=== PATIENT | female | born 1965 | race Caucasian/White ===

== ENCOUNTER 2020-04-18 11:51 | Outpatient (CLI) | payer OTHER, SELFPAY ==
--- NOTE | ~2020-04-18 | MM_ITS ---
EXAMINATION: MM screening ariana BI w keena HISTORY: Screening mammogram TECHNIQUE: Craniocaudal and mediolateral oblique 3-D tomosynthesis images were obtained and synthetic 2-D images were generated. CAD analysis was submitted and interpreted. COMPARISON: bilateral digital screening mammogram BREAST PARENCHYMAL COMPOSITION: The breasts are almost entirely fatty. FINDINGS: There is no evidence of suspicious mass, calcification, or architectural distortion to sugg est malignancy in either breast. There has been no suspicious interval change. IMPRESSION: 1. No mammographic evidence of malignancy. 2. Recommend routine screening mammography in one year. BI-RADS Category 1: Negative Reviewed, dictated and finalized at location A. NEL OPENER
== END 2020-04-18 11:52 | disposition home or self-care (01) ==
LOC: ANHIMG 11:54
PROVIDERS: PCP Physician Assistant; Visit Provider Nurse Practitioner Obstetrics & Gynecology
DX: Z12.31 Encounter for screening mammogram for malignant neoplasm of breast (principal)
CPT/HCPCS: 77063; 77067

== ENCOUNTER 2022-03-24 17:18 | Outpatient (CLI) | payer OTHER, SELFPAY ==
--- NOTE | ~2022-03-24 | CT_ITS ---
EXAMINATION: CT abdomen pelvis wo con DATE: 03/24/2022 17:45 INDICATION: Left-sided abdominal pain TECHNIQUE: Computed tomography (CT) of the abdomen and pelvis was performed without intravenous contr ast. The dose-length product (DLP) was 1586.43 mGy-cm. Automated exposure control and iterative recon struction technique were employed. COMPARISON: None FINDINGS: The lung bases are clear. The heart size is normal. The liver, spleen, pancreas, and adrena l glands are normal. Small stones are present in the nondistended gallbladder. Cysts of the left kidn ey measure up to 4.9 cm. The right kidney is unremarkable. No pathologically enlarged abdominal or pe lvic lymph nodes are identified. No free intraperitoneal gas or evidence of bowel obstruction. The ap pendix is normal. There is severe lumbar spondylosis at L5-S1. IMPRESSION: 1. No CT correlate for the patient's symptoms. Reviewed, dictated and finalized at location L. CULTURE TEACHER
== END 2022-03-24 17:19 | disposition home or self-care (01) ==
LOC: ANHIMG 17:21
PROVIDERS: PCP Physician Assistant; Visit Provider Physician Assistant
DX: R10.9 Unspecified abdominal pain (principal); G89.29 Other chronic pain
CPT/HCPCS: 74176

== ENCOUNTER 2022-05-04 15:48 | Outpatient (CLI) | payer OTHER, SELFPAY ==
--- NOTE | ~2022-05-04 | MM_ITS ---
EXAMINATION: MM screening ariana BI w keena HISTORY: Screening TECHNIQUE: Craniocaudal and mediolateral oblique 3-D tomosynthesis images were obtained and synthetic 2-D images were generated. CAD analysis was submitted and interpreted. COMPARISON: 04/18/2020 BREAST PARENCHYMAL COMPOSITION: There are scattered areas of fibroglandular density. FINDINGS: There is no evidence of suspicious mass, calcification, or architectural distortion to sugg est malignancy in either breast. There has been no suspicious interval change. IMPRESSION: 1. No mammographic evidence of malignancy. 2. Recommend routine screening mammography in one year. BI-RADS Category 1: Negative Reviewed, dictated and finalized at location A.
== END 2022-05-04 15:49 | disposition home or self-care (01) ==
PROVIDERS: PCP Internal Medicine; Visit Provider Internal Medicine
DX: Z12.31 Encounter for screening mammogram for malignant neoplasm of breast (principal)
CPT/HCPCS: 77063; 77067

== ENCOUNTER 2022-08-09 12:26 | Emergency (ER) | payer OTHER, SELFPAY ==
--- NOTE | ~2022-08-09 | XR_ITS ---
EXAMINATION: XR lumbar spine 2-3V DATE: 08/09/2022 13:44 INDICATION: Left-sided sciatica. TECHNIQUE: 3 views of lumbar spine standing on 4 radiographs were obtained. COMPARISON: CT abdomen and pelvis 03/24/2022 FINDINGS: There is 8 degrees levocurvature of thoracolumbar spine. There is 4 degrees dextrocurvature of lumbar spine. There are Schmorl's nodes at most levels. There is mild chronic anterior wedging of T11 vertebral body. There is moderately decreased disc height at L3-L4, mildly decreased disc height at L4-L5, and severely decreased disc height at L5-S1. There is multilevel mild facet joint osteoart hritis. IMPRESSION: 1. Severe lower lumbar spondylosis. Reviewed, dictated and finalized at location A.
[2022-08-09 12:32] VITALS: BP 176/87; PULSE 94; RESP 16; TEMP 36.3; O2SAT 99
[2022-08-09 13:29] LABS: Appearance Urine Cloudy (Clear); Bacteria Urine 2+ /hpf; Bilirubin Urine Negative (Negative); Blood Urine Negative (Negative); Color Urine Yellow (Yellow); Glucose Urine UA 3+ mg/dL (Negative); Ketones Urine Negative (Negative); Leukocyte Esterase Ur Trace LEU/UL (Negative); Nitrate Urine Negative (Negative); Non Pathogenic Casts 0-2; Protein Urine Negative (Negative); Specific Grav Ur 1.028 (1.001-1.035); Squamous Epithelial Cell Urine Moderate /hpf (Few)
--- NOTE | 2022-08-09 13:41 | PC.NURSE ---
Pt to XRAY via stretcher at this time.
[2022-08-09] MEDS: CYCLOBENZAPRINE HCL 10 MG TABLET 5 MG PO (13:49)
[2022-08-09] MEDS: KETOROLAC (*BKC) 60 MG/2 ML VIAL IM (13:51)
[2022-08-09 13:53] LABS: Add Urine Microscopic? YES
[2022-08-09 14:08] VITALS: BP 148/83; PULSE 82; TEMP 36.6; O2SAT 98
--- NOTE | 2022-08-09 14:31 | ED.BACK ---
HPI - Back Pain/Injury General Chief Complaint: Back Pain/Injury Stated Complaint: back pain Time Seen by Provider: 08/09/22 13:20 History of Present Illness HPI Narrative: Patient is a 57-year-old female who presents ER with left-sided low back pain. Ongoing over the last week and aching. However yesterday she bent over and felt a pop in her back. Since then she has had some sharp pain going down her left leg. Has some paresthesia over the lateral calf but no decrease sensation. No difficulty with urination/defecation. She has pain with trying to stand straight up and with prolonged sitting. Related Data Allergies Allergy/AdvReac Type Severity Reaction Status Date / Time No Known Allergies Allergy Unverified 02/26/22 09:07 Review of Systems Constitutional: Constitutional: Denies chills and Denies fever(s) Genitourinary: Genitourinary: Denies dysuria and Denies urinary incontinence Musculoskeletal: Musculoskeletal: Reports back pain, Denies arthralgias and Denies joint swelling Neurologic: Denies focal weakness and Denies numbness Comments: + Paresthesias PMFSH Past Medical History Medical History (Updated 08/09/22 @ 18:31 by Slim Reyes MD) Diabetes mellitus Hypertension Hypothyroidism Surgical History Surgical History H/O tubal ligation 2013 Family History Family History Mother Family history of chronic obstructive pulmonary disease Family history of heart disease in male family member before age 55 Father Family history of diabetes mellitus in first degree relative Family history of heart disease in male family member before age 55 Social History Social History Smoking status: Never smoker Alcohol intake: current Substance use: never Lack of Transportation: No Lack of Food: Never True Current Housing: I Have Housing Concerned About Future Housing: No Difficulty Paying Gas/Electric Bills: No Difficulty Paying for Meds: No Currently Unemployed: No Education: High School Diploma/GED Difficulty w/ Childcare or Family Care: No Exam Narrative: GENERAL: Well-appearing, well-nourished, and in no acute distress. HEAD: Normocephalic, atraumatic. ENT: Mucous membranes moist. Back: No reproducible midline tenderness to the T/L-spine. There is significant tenderness over the left SI region without palpable spasm. EXTREMITIES: Normal range of motion. No edema. SKIN: Warm, dry, no rash. NEURO: Alert and oriented x3. Sharp and soft touch intact throughout the lower extremities bilaterally. PSYCH: Normal mood and affect. Course Course Emergency Course: Discussed management of pain with anti-inflammatories muscle relaxers. Discussed imaging results. Patient verbalized understanding. Patient not felt to have cauda equina or potential abscess. Vital Signs Vital signs: Vital Signs Temperature 97.3 F L 08/09/22 12:32 Pulse Rate 94 08/09/22 12:32 Respiratory Rate 16 08/09/22 12:32 Blood Pressure 176/87 H 08/09/22 12:32 Pulse Oximetry 99 08/09/22 12:32 Oxygen Delivery Room Air 08/09/22 12:32 Temperature 97.8 F 08/09/22 14:08 Pulse Rate 82 08/09/22 14:08 Respiratory Rate 16 08/09/22 12:32 Blood Pressure 148/83 H 08/09/22 14:08 Pulse Oximetry 98 08/09/22 14:08 Oxygen Delivery Room Air 08/09/22 12:32 MDM - Back Pain/Injury Lab Data Labs: Lab Results 08/09/22 Range/Units 12:58 Urine Color Yellow (Yellow) Urine Appearance Cloudy H (Clear) Urine pH 5.0 (5.0-9.0) Ur Specific Evart 1.028 (1.001-1.035) Urine Protein Negative (Negative) mg/dL Urine Glucose (UA) 3+ H (Negative) mg/dL Urine Ketones Negative (Negative) mg/dL Ur Blood (Man) Negative (Negative) Urine Nitrate Negative (Negative) Urine Bilirub
== END 2022-08-09 14:40 | disposition home or self-care (01) ==
PROVIDERS: Emergency Medicine; Emergency Provider Emergency Medicine; PCP Internal Medicine
DX: M54.42 Lumbago with sciatica, left side (principal); E11.9 Type 2 diabetes mellitus without complications; I10 Essential (primary) hypertension; E03.9 Hypothyroidism, unspecified; Z79.85 Long-term (current) use of injectable non-insulin antidiabetic drugs; Z79.84 Long term (current) use of oral hypoglycemic drugs; M47.816 Spondylosis without myelopathy or radiculopathy, lumbar region
CPT/HCPCS: 72100; 81001; 87086; 87088; 96372; 99283; A9270; J1885

== ENCOUNTER 2023-01-13 15:30 | Outpatient (RCR) | payer OTHER, SELFPAY ==
[2022-12-10 15:25] VITALS: BP_SYST 90
--- NOTE | 2022-12-10 16:19 | OPREHPOC ---
Outpatient Therapy Plan of Care This is a Multidisciplinary Plan of Care that may contain components documented by all disciplines (PT, OT, and ST.) PT Problem 1 PT Problem #1 Knowledge Deficit PT Goal 1 Goal 1* indep with HEP 2* pt voice correct work station set up and use PT Problem 2 PT Problem #2 Pain PT Goal 1 Goal 1* pt report pain at worst rating of 4/10 2* self assessment Quick Dash score of 12% limitation 3* pt report with sleeping awaken 1x/night due to pain PT Problem 3 PT Problem #3 Impaired Strength PT Goal 1 Goal active R shoulder ROM in standing x 5 reps: 1* flexion to 140' 2* abduction to 120' 3* IR- reach behind back, palm to above waist 4* ER- reach to back of head, palm to back of head
--- NOTE | 2022-12-10 16:20 | PTOPEVAL1 ---
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 She is R hand dominant and works 10-12 hours/day doing all sitting, computer and phone work. Quick DASH self assessment is 23% limitation in activity level. Sleep is disrupted due to shoulder pain and her home and work activity is limited and pain increases. With the evaluation, she has poor shoulder positioning; decreased strength of R shoulder--is not able to move through available ROM; cervical motions are WNL and not painful. There is not any areas of shoulder tender to touch. Skilled PT services are indicated for modalities to decrease pain; therapeutic exercises to increase R shoulder strength and ROM, and education for posture, work station position and body mechanics. Plan of Care Interventions Electrical Stimulation,Hot Pack/Cold Pack,Manual Therapy,Patient Education,Therapeutic Activities,Therapeutic Exercise,Ultrasound,Other Other Interventions kalen, SEBASTIAN
--- NOTE | 2022-12-28 16:04 | PCPTNOTE ---
Pt. did not show for 12/28/22 appointment.
[2023-01-13 15:30] VITALS: BP_SYST 130
--- NOTE | 2023-01-13 16:18 | PTOPDC ---
Assessment and note entered by Whitley Dan, PT Discharge Information Assessment Status Discharge Diagnosis R shoulder pain Onset June 2022 Subjective Information feel like have more range of motion with shoulder; still have problems with hooking bra behind my back and sometimes have to change how put arm into coat; have good set up with computer for work and no problems with it; doing the exercises at home and stretching/moving during the day at work; want to go ahead and stop therapy and continue with exercises on my own. Reported Pain Level Pain Score Self Report Additional Pain Score Comments pain range in the past in the past week 2-3/10; is able to sleep through the night/ pain not disrupt her sleep; use heat; not taking any pain meds; at end of session, did not want stim or heat; discussed home stim unit, use and pad placement. she stated she may obtain one for home use. Assessment PT Clinical Summary Mel has received 6 PT sessions. She has improved in all areas compared to the initial evaluation: pain from 3-8/10 to 2-3/10; reported sleeping was awakening 3x/night due to shoulder pain, now no awakening from sleep; self assessment Quick DASH from 23 to 11 % limitation in activity tolerance; active and passive shoulder motions have all increased; strength of shoulder has improved. She has been educated on HEP and work station computer set up. The goals were partially achieved. Discharge PT; she is to continue with her exercises at home. Plan of Care PT Services Indicated No
== END 2023-01-13 16:46 | disposition home or self-care (01) ==
LOC: ANHPT 15:30
PROVIDERS: PCP Physician Assistant; Visit Provider Physician Assistant
DX: M25.511 Pain in right shoulder (principal)
CPT/HCPCS: 97014; 97110; 97140; 97161; 99199; G0283

== ENCOUNTER 2024-10-10 14:14 | Outpatient (CLI) | payer OTHER, SELFPAY ==
--- NOTE | ~2024-10-10 | MM_ITS ---
EXAMINATION: MM screening [facility] BI w keena HISTORY: Screening TECHNIQUE: Craniocaudal and mediolateral oblique 3-D tomosynthesis images were obtained and synthetic 2-D images were generated. CAD analysis was submitted and interpreted. COMPARISON: Mammograms from 05/04/2022 and 04/18/2020 BREAST PARENCHYMAL COMPOSITION: There are scattered areas of fibroglandular density. FINDINGS: There is no evidence of suspicious mass, calcification, or architectural distortion in either breast to suggest malignancy. There has been no significant interval change. IMPRESSION: 1. No mammographic evidence of malignancy. Recommend routine screening mammography in one year. BI-RADS Category 1: Negative Reviewed, dictated and finalized at location Q. IMPRESSION: 1. No mammographic evidence of malignancy. Recommend routine screening mammogra phy in one year. BI-RADS Category 1: Negative
--- OUTSIDE RECORDS SUMMARY | 2024-10-10 15:44 | XMS_ITS | Clinical Summary ---
Author Organization [facility] Health Address [address] [place] [address] Care Team Providers Care Fire Fighting Equipment Specialist Name Role Phone Unavailable Primary Care Provider Unavailabl e Social History Tobacco Use Types Packs/Day Years Used Date Smoking Tobacco: Never Assessed Comments Unknown Sex and Gender Information Value Date Recorded Sex Assigned at Not on file Legal Sex Unknown 12/19/2019 9:03 PM PST Gender Identity Not on file Sexual Orientation Not on file Plan of Treatment Not on file
--- OUTSIDE RECORDS SUMMARY | 2024-10-10 15:44 | XMS_ITS | Clinical Summary ---
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
--- OUTSIDE RECORDS SUMMARY | 2024-10-10 15:44 | XMS_ITS | Encounter Summary ---
Author Organization [facility] Health Address [address] [place] [address] Care Team Providers Care Resource Specialist Teacher Name Role Phone Unavailable Primary Care Provider Unavailabl e Prior Encounters Date Type Department Care Team Description 02/26/2019 Converted 13x Documents [facility] [address] [place] [phone] <No scans attached> 02/26/2019 Converted 13x Documents [facility] [address] [place] [phone] <No scans attached> Plan of Treatment Not on file Visit Diagnoses Not on file
--- OUTSIDE RECORDS SUMMARY | 2024-10-10 15:44 | XMS_ITS | Encounter Summary ---
Author Organization [facility] Address 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
--- OUTSIDE RECORDS SUMMARY | 2024-10-10 15:44 | XMS_ITS | Encounter Summary ---
Author Organization [facility] Address 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
--- OUTSIDE RECORDS SUMMARY | 2024-10-10 15:44 | XMS_ITS | Encounter Summary ---
Author Organization [facility] Address [address] [place] [address] Care Team Providers Care Radio Despatcher Name Role Phone Unavailable Primary Care Provider Unavailabl e Encounter Details Date Type Department Care Team (Late st Contact Info) Description 07/30/1999 Outpatient Historical HIS MD Rafael OSUNA Carolyn, MD [address] [place] [phone] Social History Tobacco Use Types Packs/Day Years Used Date Smoking Tobacco: Never Assessed Comments Unknown Sex and Gender Information Value Date Recorded Sex Assigned at Not on file Legal Sex Female 4:52 AM BAND MAKER Gender Identity Not on file Sexual Orientation Not on file documented as of this encounter Plan of Treatment Not on file documented as of this encounter Visit Diagnoses Not on filedocumented in this encounter
--- OUTSIDE RECORDS SUMMARY | 2024-10-10 15:44 | XMS_ITS | Clinical Summary ---
Author Organization [facility] [address] [facility] Address [address] [place] [phone] Care Team Providers Care Auto Inspector Name Role Phone Deep Willingham MD Primary Care Provider [phone] Allergies No known active allergies Medications betamethasone valerate (VALISONE) 0.1 % cream APPLY TO AFFECTED AREA TWICE A DAY 04/08/2020 Active OneTouch Verio test strips strip 06/25/2020 Active OneTouch Verio Flex meter [facility] USE TO CHECK BLOOD SUGAR ONCE DAILY 04/11/2020 Active Trulicity 0.75 mg/0.5 mL pen injector INJECT 0.75 MG (0.5 ML) SUBCUT WEEKLY 06/08/2020 Active fenofibrate (TRIGLIDE) 160 mg tablet Take 160 mg by mouth daily 04/11/2020 Active labetaloL (NORMODYNE,KESSLER DATE) 100 mg tablet Take 100 mg by mouth every 12 (twelve) hours 05/05/2020 Active OneTouch Delica Plus Lancet 33 gauge misc 06/25/2020 Active lisinopriL (PRINIVIL,ZESTR IL) 20 mg tablet Take 20 mg by mouth daily 04/17/2020 Active metFORMIN (GLUCOPHAGE) 500 mg tablet Take 1,000 mg by mouth 2 (two) times a day 05/05/2020 Active rosuvastatin (CRESTOR) 10 mg tablet Take 10 mg by mouth daily 05/13/2020 Active biotin 1 mg tablet Take 1,000 mcg by mouth 3 (three) times a day Active PNV #[id number] acid-dha 35 mg iron-5 mg iron-1 mg capsule Take by mouth daily Active multivitamin capsule Take 1 capsule by mouth daily Active Active Problems Problem Noted Date Diagnosed Date Positive HAILEY (antinuclear antibody) 06/26/2020 Overview (07/04/2020): Labs (06/26/2020): Ca 10.6, ESR (46). CRP (3.8), neg DANA, protein/creat and cbc wnl AVISE (06/26/2020): +HAILEY 1:320 homogenous, dsDNA (305) not confirmed by crithidia Assessment & Plan (04/14/2021 10:16 AM QUALITY IMPROVEMENT COORDINATOR): PMHx of SLE diagnosed 30 years ago. Repeat serologies with AVISE revealed a positive HAILEY 1:320 and dsDNA as well as mildly elevated ESR (46). Hair thinning unrelated to SLE as it improved with biotin, vitamins, and medicated shampoos. Continues to deny any CTD symptoms to suggest active disease. No obvious synovitis or tenderness noted on peripheral exam today. Serologies suggest SLE however she has no current symptoms to suggest active disease. Will defer any specific treatment at this time as she appears to be in remission. Will continue to monitor for any new symptoms to suggest active disease. Will repeat serologies including AVISE today. If serologies remain unchanged or unremarkable, then will follow up as needed. Will call patient with results. Assessment & Plan (10/14/2020 11:05 AM CDT): PMHx of SLE diagnosed 30 years ago. Recent repeat serologies with AVISE revealed a positive HAILEY 1:320 and dsDNA as well as mildly elevated ESR (46). Hair thinning unrelated to SLE as it improved with biotin, vitamins, and medicated shampoos. Continues to deny any CTD symptoms to suggest active disease. No obvious synovitis or tenderness noted on peripheral exam today. Serologies suggest SLE however she has no current symptoms to suggest active disease. Will defer any specific treatment at this time as she appears to be in remission. Will continue to monitor for any new symptoms to suggest active disease. Will check serologies with AVISE next visit. Follow up in 6 months. Sooner if needed. Had discussion about COVID-19 vaccine, and I recommended the Metrolight or Pfizer vaccines. Discussed getting vaccine series about 3 months since COVID-19 infection. Assessment & Plan (07/09/2020 10:48 AM CDT): PMHx of SLE diagnosed 30 years ago. Recent repeat serologies with AVISE revealed a positive HAILEY 1:320 and dsDNA as well as mildly elevated ESR (46). Hair thinning unlikely to be related to SLE as it improved with biotin, vitamins, and medicated shampoos. Denies any other CTD symptoms to suggest active disease. No obvious synovitis or tenderness noted on peripheral exam today. Serologies suggest SLE however she has no current symptoms to suggest active disease. Will defer any specific treatment at this time as she appears to be in remission. Will continue to monitor for any new symptoms to suggest active disease. Follow up in 3 months. Sooner if needed. Seen with Dr. Navarro. Assessment & Plan (06/26/2020 11:16 AM CDT): 54-year-old female with PMHx of T2DM, HTN, and possible SLE (diagnosed 30 years ago) presents with a low positive HAILEY 1:80 homogenous pattern. C/o generalized hair thinning/loss after elsy COVID in 01/2020 however has recently improved with biotin, vitamins (high folic acid), and medicated shampoos. Denies rashes on scalp, scarring alopecia, or frame of face hair thinning. Denies oral/nasal ulcers, sicca, Raynaud's, photosensitive, malar rashes, or arthralgias. No obvious synovitis or joint tenderness noted on peripheral exam today. Absence of CTD symptoms and unremarkable exam are not overly suspicious for SLE. Low positive HAILEY is nonspecific for SLE. Due to previous diagnosis of SLE 30 years ago, will order appropriate serologies to further evaluate. Follow up in 2 weeks. Sooner if needed. Seen with Dr. Navarro. Social History Tobacco Use Types Packs/Day Years Used Date Smoking Tobacco: Never Personal Safety Answer Date Recorded Getting School Help Needed Not on file 04/23 Comments Unknown Sex and Gender Information Value Date Recorded Sex Assigned at Not on file Legal Sex Female 9:36 AM CDT Gender Identity Not on file Sexual Orientation Not on file Obstetrics History Last Filed Vital Signs Vital Sign Reading Time Taken Comments Blood Pressure 140/78 10/14/2020 10:02 AM CDT Pulse 84 10/14/2020 10:02 AM CDT Temperature 36.6 C (97.9 F) 04/14/2021 9:55 AM QUALITY IMPROVEMENT COORDINATOR Respiratory Rate - - Oxygen Saturation 98% 10/14/2020 10: 02 AM CDT Inhaled Oxygen Concentration - - Weight 124.1 kg (273 lb 9.6 oz) 04/14/2021 9:55 AM QUALITY IMPROVEMENT COORDINATOR Height - - Body Mass Index - - Plan of Treatment Health Maintenance Due Date Last Done Comments Breast Cancer Screening-Mammogram 1965 Cervical Cancer Screening 1965 Colon Cancer Screening-Colonoscopy 1965 Depression Screening 1965 Hepatitis C Screening 1965 DTaP/Tdap/Td Vaccine (1 - Tdap) 1976 Hepatitis B Screening 08/05/1983 Regular Well Visit/Exam 18-64 08/05/1983 Zoster Vaccine (1 of 2) 08/05/2015 Covid-19 Vaccine (3 - 2024-2 6 season) 2024 02/02/2021, 01/07/2021 Influenza Vaccine (#1) 2024 Pneumococcal vaccine <65 Aged Out No longer eligible based on patient's age to complete this topic Insurance [employer] Care Teams Auto Inspector Relationship Specialty Start Date End Date Deep Willingham MD [address] [facility] [address] [place] [address] PCP - General Internal Medicine 05/21/20
== END 2024-10-10 14:15 | disposition home or self-care (01) ==
LOC: CHSIMG 14:17
PROVIDERS: PCP Nurse Practitioner; Visit Provider Nurse Practitioner
DX: Z12.31 Encounter for screening mammogram for malignant neoplasm of breast (principal)
CPT/HCPCS: 77063; 77067